=== PATIENT | male | born 1990 | race African-American/Black ===

== ENCOUNTER 2023-10-20 09:42 | Day surgery (SDC) | payer OTHER, SELFPAY ==
[2023-09-16 13:15] VITALS: BMI 33.6
[2023-10-20] VITALS (8 sets, daily range): BP systolic 120–143; BP diastolic 71–84; PULSE 71–103; RESP 12–30; TEMP 36.3–36.6; O2SAT 92–98; BMI 34.5
[2023-10-20] MEDS: LACTATED RINGERS 1,000 ML 42 ML IV (10:27)
--- NOTE | 2023-10-20 10:32 | P.HP_ITS ---
History of Present Illness History of Present Illness Date Patient Seen: 10/20/23 Time Patient Seen: 10:32 Chief complaint: SDC Narrative: Abimael is a 33-year-old man with a left inguinal hernia. See the office note from July for details. He has been diagnosed with HIV in the interim and is now on antiviral medications. [facility] Medical History Tinea versicolor Tachycardia Anxiety Social History household members: friend(s) and none Smoking Status: Former smoker alcohol intake: current Meds Home Medications and Allergies Home Medications Medication Instructions Recorded Confirmed Type bictegravir 50 mg-emtricitabine 1 tab PO DAILY 10/20/23 10/20/23 History 200 mg-tenofovir alafenam 25 mg tablet (Biktarvy) Allergies Allergy/AdvReac Type Severity Reaction Status Date / Time No Known Drug Allergies Allergy Verified 10/20/23 10:12 Exam Vital Signs (past 8 hours): - 10/20/23 10:14 Temperature 98 F Pulse Rate 71 Respiratory Rate 24 Blood Pressure 143/72 H Pulse Oximetry 98 Oxygen Delivery Method Room Air Oxygen Delivery Method Room Air Narrative Exam Narrative: Left inguinal hernia Assessment & Plan Assessment and plan (1) Left inguinal hernia: Status: Acute Plan We reviewed the risks and benefits of laparoscopic left inguinal hernia repair with mesh and he would like to proceed. Time-Based Coding :: [TOTAL MINUTES] spent with patient and on the chart (including review of chart, obtaining history, exam, reviewing outside data, placing orders, documenting exam and treatment plan, and counseling patient) on [DATE].
[2023-10-20] MEDS: CEFAZOLIN 2 GM/100 ML PREMIX 100 ML IV (10:51)
--- NOTE | 2023-10-20 11:01 | SUR.OPER ---
Supine on padded OR bed, head on pillow, arms padded and tucked at sides, legs uncrossed, safety belt at thigh, tape over blanket over lower legs .
[2023-10-20] MEDS: BUPIVACAINE 0.5% (PF) 30 ML, EPINEPHrine 0.15 MG INJ (11:07)
--- NOTE | 2023-10-20 11:53 | P.OP_ITS ---
Operative Date/Time/Diagnoses Date of procedure: 10/20/23 Time of procedure: 11:53 Pre-op diagnosis: Left inguinal hernia Post-op diagnosis: same Procedure & Clinicians Procedure: Laparoscopic left inguinal hernia repair with mesh Same procedure as scheduled: Yes Surgeon: Ezra Strickland Corporate Development Manager: Dandy Erazo Anesthesia Type: General Operative Notes Procedure in detail: The patient was given preoperative antibiotics. The patient was brought to the operating room, placed on the table in the supine position with the arms tucked and general anesthesia was induced. The abdomen was prepped and draped in the usual fashion. A time-out was performed. A 1 cm transverse incision was created superior to the umbilicus and dissection was carried down to the fascia. The fascia was grasped with a Iris clamp to elevate the abdominal wall. The fascia was scored transversely with cautery. A Peon clamp was used to mcwilliams the peritoneum. The Phillip port was placed and the abdomen was insufflated to 15 mmHg. The camera was inserted, there was no evidence of any injury from the entry. There was a small indirect left inguinal hernia. 5 mm ports were placed under direct vision in the mid left and mid right abdomen. The patient was positioned in Trendelenburg. We created left peritoneal flap. The peritoneum was dissected off the left cord structures and the Maulik's ligament was exposed. A large left Bard mesh was brought in and placed over the defect with the medial edge against Maulik's ligament. We then closed the peritoneal flap with a running 3-0 barbed suture. We took one last look around the abdomen and saw no other abnormalities. The suture was removed and accounted for. The 5 mm ports were removed under direct vision. The abdomen was desufflated. The Phillip port was removed. Additional local was injected into the fascia and the fascial incision was closed with 2 interrupted 0 Vicryl sutures. The skin incisions were closed with 4 Monocryl, Steri-Strips and Band-Aids. EBL: 10 mL Dandy BARBOUR provided assistance with exposure, retraction and closure of incisions. Post-operative Condition: stable Disposition: PACU
[2023-10-20] MEDS: HYDROMORPHONE 1 MG INJ IV ×2 (12:21→12:31)
[2023-10-20] MEDS: ONDANSETRON 4 MG/2 ML INJ IV (12:21)
[2023-10-20] MEDS: OXYCODONE IR 5 MG TABLET PO (12:30)
== END 2023-10-20 13:11 | disposition home or self-care (01) ==
PROVIDERS: PCP Family Medicine; Referring Provider Surgery; Visit Provider Surgery
PROC: 0YQ64ZZ Repair Left Inguinal Region, Percutaneous Endoscopic Approach (ICD-10-PCS; CPT 49650; principal; 2023-10-20 11:45)
DX: K40.90 Unilateral inguinal hernia, without obstruction or gangrene, not specified as recurrent (principal)
CPT/HCPCS: 49650; J0171; J0690; J1170; J1885; J2250; J2405; J2704; J3010

== ENCOUNTER → 2024-06-10 08:26 | Outpatient (CLI) | payer OTHER, SELFPAY ==
--- NOTE | 2024-06-10 08:27 | DI.US.S_ITS ---
PROCEDURE: US HERNIA INDICATIONS: H/O LT INGUINAL HERNIA REPAIR/NOW PAIN SAME SITE TECHNIQUE: Real-time focused scanning was performed of the inguinal region, with image documentation. COMPARISON: None. FINDINGS: Sonographic evaluation of the left inguinal hernia status post mesh repair does not reveal a significant herniation or fascial defect. There is a small, reducible fat containing right inguinal hernia; the neck measures 0.9 cm in maximal dimension. IMPRESSION: 1. Left inguinal hernia status post mesh repair without sonographic evidence of recurrence. 2. Small reducible right fat containing inguinal hernia. Dictated by: Dillon Lawrence M.D. on 06/10/2024 at 16:21 Approved by: Dillon Lawrence M.D. on 06/10/2024 at 16:23
== END ==
PROVIDERS: PCP Nurse Practitioner Family; Referring Provider Nurse Practitioner Family; Visit Provider Nurse Practitioner Family
DX: K40.90 Unilateral inguinal hernia, without obstruction or gangrene, not specified as recurrent (principal)
CPT/HCPCS: 76705

== ENCOUNTER 2024-09-28 09:24 | Day surgery (SDC) | payer OTHER, SELFPAY ==
[2024-07-19 07:54] VITALS: BMI 32.3
[2024-09-28] VITALS (15 sets, daily range): BP systolic 97–130; BP diastolic 43–79; PULSE 59–73; RESP 8–18; TEMP 36.3–36.9; O2SAT 93–98; BMI 32.3
[2024-09-28] MEDS: FAMOTIDINE 20 MG/2 ML VIAL IV (10:12)
[2024-09-28] MEDS: LACTATED RINGERS 1,000 ML 42 ML IV ×2 (10:12→12:09)
--- NOTE | 2024-09-28 11:49 | PM.HP.IH.1 ---
History of Present Illness History of Present Illness Date Patient Seen: 09/28/24 Time Patient Seen: 11:49 Chief complaint: SDC Narrative: Abimael is a 34-year-old man with a right inguinal hernia. See the office note for details. [facility] Medical History (Updated 07/19/24 @ 08:01 by Iris Watkins RN) History of COVID-19 (06/2019) Eczema HIV positive Tinea versicolor Tachycardia Anxiety Surgical History (Updated 07/19/24 @ 07:57 by Iris Watkins RN) Hx of left inguinal hernia repair (10/20/23) Social History household members: friend(s) and none Smoking Status: Former smoker alcohol intake: current Meds Home Medications and Allergies Home Medications ?Medication ?Instructions ?Recorded ?Confirmed ?Type bictegravir 50 mg-emtricitabine 1 tab PO DAILY 10/20/23 09/28/24 History 200 mg-tenofovir alafenam 25 mg tablet (Biktarvy) dextroamphetamine-amphetamine 15 15 mg PO DAILY 07/18/24 09/28/24 History mg tablet (Adderall) escitalopram oxalate 10 mg tablet 10 mg PO DAILY 07/18/24 09/28/24 History (Lexapro) Allergies Allergy/AdvReac Type Severity Reaction Status Date / Time No Known Drug Allergies Allergy Verified 09/28/24 09:48 Exam Vital Signs (past 8 hours): - 09/28/24 10:03 Temperature 97.9 F Pulse Rate 69 Respiratory Rate 17 Blood Pressure 130/79 Pulse Oximetry 98 Oxygen Delivery Method Room Air Oxygen Delivery Method Room Air Const General: healthy appearing Assessment & Plan Assessment and plan (1) Right inguinal hernia: Status: Acute Plan Robotic right inguinal hernia repair with mesh Time-Based Coding :: [TOTAL MINUTES] spent with patient and on the chart (including review of chart, obtaining history, exam, reviewing outside data, placing orders, documenting exam and treatment plan, and counseling patient) on [DATE]. 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
[2024-09-28] MEDS: CEFAZOLIN 2 GM/100 ML PREMIX 100 ML IV (12:35)
--- NOTE | 2024-09-28 12:56 | SUR.OPER ---
Supine on pink padded OR bed, head on pillow, arms padded with purple foam and tucked at sides, iv site wrapped, legs uncrossed, safety belt at thigh, tape over blanket over lower legs .
[2024-09-28] MEDS: ACETAMINOPHEN IV 1,000 MG/100 ML VIAL 400 MG IV (13:24)
--- NOTE | 2024-09-28 13:46 | PM.OP.1 ---
Operative Date/Time/Diagnoses Date of procedure: 09/28/24 Time of procedure: 13:46 Pre-op diagnosis: Right inguinal hernia Post-op diagnosis: same Procedure & Clinicians Procedure: Mini laparotomy with repair of iatrogenic enterotomy Same procedure(s) as scheduled: No Indications: Right inguinal hernia Surgeon: Ezra Strickland Drafter Automotive Design: Dandy Erazo Anesthesia Type: General Operative Notes Findings: Iatrogenic small bowel enterotomy Applied: none Estimated Blood Loss (mL): 5 Procedure in detail: The patient is a 34-year-old man who presented for a robotic right inguinal hernia repair with mesh. He had had a prior laparoscopic left inguinal hernia repair about a year prior. The patient was marked in the preoperative holding area. The patient was brought to the operating room and placed on the table in the supine position. General endotracheal anesthesia was induced. The abdomen was prepped and draped in the usual fashion and a time-out was performed. We started by making 1.5 cm transverse incision above the umbilicus at the same location as the previous laparoscopic port site. There was scar tissue in the subcutaneous planes. Dissection down through the scar tissue lead to inadvertent dissection through the anterior sheath. At this point it was noted that there was a loop of small bowel with a small enterotomy. It would decision was made to abort the robotic hernia repair due to the risk of contamination and mesh infection. The fascial incision was extended to roughly 4 cm in a transverse direction. This also required opening the skin incision to about 5 cm along the right side of the umbilicus. The injured segment of small bowel was then pulled up through the wound and examined. The enterotomy was proximally 8 mm and was full-thickness revealing mucosa. The enterotomy was closed transversely in 2 layers using a 3-0 PDS inner layer followed by an outer layer of 3-0 silk seromuscular stitches. The wound was irrigated with sterile saline. The loop of bowel containing the enterotomy and repair was then reduced back into the abdominal cavity. Omentum was grasped and pulled down to cover the bowel. The fascial incision was then closed with 4-5 interrupted 0 Ethibond sutures. The skin was then closed in layers using 3-0 Vicryl and 4-0 Monocryl. A sterile dressing was applied. The patient was brought to recovery room. Complications: other (Small bowel enterotomy) Post-operative Condition: stable Disposition: PACU
--- NOTE | 2024-09-28 13:52 | SUR.OPER ---
ROBOTIC ASSISSTED INGUINAL HERNIA REPAIR CONVERTED TO LAPAROTOMY WITH SMALL BOWEL REPAIR
[2024-09-28] MEDS: PIPERACILLIN/TAZO 4.5 GM in SODIUM CHLORIDE 0.9% 100 ML IV (14:03)
[2024-09-28] MEDS: ONDANSETRON 4 MG/2 ML INJ IV (14:35)
[2024-09-28] MEDS: OXYCODONE IR 5 MG TABLET PO (14:35)
--- NOTE | 2024-09-28 15:03 | SUR.PHASEI ---
Report called to [facility] on ACU, pt transferred to room 204 via bed with belongings bag
--- NOTE | 2024-09-28 17:34 | PC.NURSE ---
Pt arrives from PACU this afternoon, sleepy but A&OX4. VSS, afebrile SBP 90's-100's. He denies reports of pain. Mepilex to umbilicus c/d/i no other rashes or wounds. Patient tolerates clear liquids well this afternoon. MD at bedside this evening evaluating patient upgrades diet. Patient is instructed to go slowly with regular food. Continuous monitoring. Ok'd to leave PIV out as it was accidentally dislodged.
[2024-09-28] MEDS: HYDROCODONE/ACET 5/325 TABLET 1 TAB PO (20:24)
--- NOTE | 2024-09-28 20:56 | PC.NURSE ---
Patient arrived from PACU this afternoon, A&OX4, VSS, on RA. He denies pain, initially lethargic but easily awakens. He is able to tolerate clear liquids well and void w/o difficulty. +BS x4. mepilex c/d/i to umbilicus. MD at bedside this evening upgrading to General diet. Continuous monitoring.
[2024-09-29] MEDS: HYDROCODONE/ACET 5/325 TABLET 2 TAB PO (02:53)
[2024-09-29] MEDS: HYDROCODONE/ACET 5/325 TABLET 1 TAB PO (07:46)
[2024-09-29] MEDS: ESCITALOPRAM 10 MG TABLET PO (08:38)
[2024-09-29 08:45] VITALS: BP 106/55; PULSE 58; RESP 16; TEMP 36.3; O2SAT 98
--- NOTE | 2024-09-29 10:54 | PC.NURSE ---
Upon assessment, dressing was saturated with dark sanguinous dressing. Removed dressing, two steristrips adhered to dressing and came off in process. Incision approximated/stitches intact, very scant sanguinous drainage, no active drainage. Replaced dressing with new Mepilex. Pt tolerated well. Pt resting comfortably, call light within reach, plan of care continues.
--- NOTE | 2024-09-29 12:36 | CM.DANOTE ---
DCP Assessment Note pt is a 34yo M admitted POD1 planned hernia repair, injury to the small bowel occurred during procedure. see surgical notes for more PCP Yadira Martínez Payer Amy prime and self pay per chart review, pt lives in [place], active/indep at baseline, active USN. per chart, pt to dc home today. per RN, pain well controlled and tolerating diet. no obvious CM needs, P: DC home today with OP rec, potentially will need to reschedule initially planned surgery. no CM needs identified at this time. will continue to follow closely in case any additional CM/DCP needs should arise YONI Yan Discharge Planning/Care Management CM Discharge Assessment Start: 09/28/24 13:54 Freq: Status: Active Protocol: Document 09/29/24 12:35 SL (Rec: 09/29/24 12:36 SL Desktop) Discharge Planning Assessment Assigned Discharge YONI Mercado Hand Mexican Food Maker DPOA/Assigned friendClayton Designee Name Contact Information [phone] Advance Directives? No History Provided By Patient Prior Living House Arrangements Household Members friend(s),none Type of Drives own vehicle transporation used prior to admit Independent with ADL Yes 's Is patient alert and Yes oriented? Discharge Plan Home Referrals Initiated None needed Review Status In Process Please Provide Date 09/29/24 Initial DC Assessment Was Performed Next Review Type Continued Stay Review Pre-Anesthesia Assessment Start: 07/19/24 07:54 Freq: Status: Active Protocol: Document 07/19/24 07:54 CAB (Rec: 07/19/24 08:04 CAB [id number]) Pre-Anesthesia Assessment PAC Comment Chart review 07/19/24 Patient Information Chart Review Reviewed Via Primary Care Kyle Gastelum Provider Seen Specialist in Yes Last 12 Months Specialist Seen General surgeon Primary Language Congolese Sandblaster Glass Required No Height 182.88 cm Weight 107.955 kg Body Mass Index (BMI 32.3 ) Barriers to Learning None Hx Blood No Transfusions Hx Blood Transfusion No: no history of transfusion Reaction Anesthesia Review No Requested Inspector Pawnshop Detail No alcohol intake current Smoking Status Former smoker Pain Present Pain Reported History of Falling ( No Recent or History of ) Patient is No completely paralyzed or completely immobile Mental Status Oriented to own ability Is patient on oxygen No ? Hx Sleep Apnea No CPAP/BIPAP use not prescribed Currently Taking a No Beta Eva Hx Chest Pain No Hx SOB No Hx Syncope or No Dizziness Anti-Coagulant No Therapy Cardiac Testing No Hx Pacemaker/ICD No Pacemaker Rep No Required? Cardiac Clearance No Received Gastrointestinal Abdominal Pain Symptoms Urinary Catheter No Present Hx Urinary Self No Catheterization Diabetes No Presence of External No or Internal Medical Devices Received a COVID Yes vaccine? Marital Status Lives With friend(s),none Patient Discharge Return Home Plan Description Advance Directives? No
--- NOTE | 2024-09-29 12:59 | PM.DS.IH.1 ---
History of Present Illness History of Present Illness Chief complaint: [facility] Narrative: Abimael is a 34-year-old man with a right inguinal hernia. See the office note for details. Discharge Providers Provider Discharge Date: 09/29/24 Primary care physician: BELEN Donaldson Discharge provider: Ezra Strickland MD Summary Hospital Course Discharge Diagnosis: Small bowel injury Hospital Course: Abimael tolerated a regular diet and was passing gas by postop day 1. He was discharged home on postop day 1. Exam Vital Signs (past 8 hours): - 09/29/24 08:45 Temperature 97.4 F L Pulse Rate 58 L Respiratory Rate 16 Blood Pressure 106/55 L Pulse Oximetry 98 Oxygen Flow Rate 0 Oxygen Delivery Method Room Air Oxygen Flow Rate 0 PFSH Medical History (Updated 07/19/24 @ 08:01 by Iris Watkins RN) History of COVID-19 (06/2019) Eczema HIV positive Tinea versicolor Tachycardia Anxiety Surgical History (Updated 07/19/24 @ 07:57 by Iris Watkins RN) Hx of left inguinal hernia repair (10/20/23) Social History household members: friend(s) and none Smoking Status: Former smoker alcohol intake: current Discharge Plan Discharge Plan Patient Disposition: Home Provider Discharge Comment: No lifting greater than 30 lb for 2 weeks. Okay to remove the outer dressing and shower after 24 hours. Steri-Strips can get wet in the shower. Remove the Steri-Strips after 5-7 days. Discharge orders & Medications Discharge Orders: Discharge (Order); Ordered 09/29/24 Ordered By: Ezra Strikcland Prescriptions: New hydrocodone-acetaminophen 5-325 mg tablet 1 tab PO Q8H PRN (Reason: pain) Qty: 10 0RF Continued dextroamphetamine-amphetamine [Adderall] 15 mg tablet 15 mg PO DAILY escitalopram oxalate [Lexapro] 10 mg tablet 10 mg PO DAILY Biktarvy 50-200-25 mg Tablet 1 tab PO DAILY Follow up/Referrals: Yadira Martínez ARNP [Primary Care Provider, Nursing] Visit Report/Discharge Packet Instructions: DI for Prescription Opioid Use, [facility]: Wound Care Stand Alone Forms: Patient Portal/API, Surgery Discharge Print Language: Panamanian Discharge Data Primary Care Provider: Yadira Martínez Attending Provider: Ezra Srtickland Charge Codes Discharge inpatient/observation: [id number]
--- NOTE | 2024-09-29 13:33 | PC.NURSE ---
Provided discharge education to pt on medications, activity, diet, symptoms worsening, and follow up. Pt stated all questions answered. All belongings with patient, no belongings in safe, pharmacy, or nurse senior sql server developer. Pt requested to be escorted to [facility] desk for rescheduling; PCT Rosita escorted pt. Pt's ride (friend) arrived.
== END 2024-09-29 13:35 | disposition home or self-care (01) ==
LOC: OR 09:24 → AC 13:45
PROVIDERS: PCP Nurse Practitioner Family; Referring Provider Surgery; Visit Provider Surgery
PROC: (CPT 49000; principal; 2024-09-28 11:15)
PROC: 0YQ54ZZ Repair Right Inguinal Region, Percutaneous Endoscopic Approach (ICD-10-PCS; CPT 49505; 2024-09-28 11:15)
DX: K40.90 Unilateral inguinal hernia, without obstruction or gangrene, not specified as recurrent (principal); K91.71 Accidental puncture and laceration of a digestive system organ or structure during a digestive system procedure; Z53.8 Procedure and treatment not carried out for other reasons
CPT/HCPCS: 49505; J0131; J0690; J1100; J1171; J1885; J2250; J2405; J2543; J2704; J3010